=== PATIENT | male | born 1975 | race Caucasian/White ===

== ENCOUNTER → 2016-10-17 | Outpatient (CLI) | payer BC | END | disposition disaster alternative care site (69) | LOC: GRAD 09:38 | DX: M25.661 Stiffness of right knee, not elsewhere classified (principal); M25.461 Effusion, right knee; M95.8 Other specified acquired deformities of musculoskeletal system; M17.11 Unilateral primary osteoarthritis, right knee; M23.306 Other meniscus derangements, unspecified meniscus, right knee ==